=== PATIENT | male | born 1950 | race Caucasian/White ===

== ENCOUNTER 2018-09-29 11:03 | Day surgery (SDC) | payer OTHER ==
[~2018-09-29] VITALS: Ht 180.3 cm; Wt 97.2 kg
[~2018-09-29 11:03] MED LIST: ALLEGRA ALLERG180 M1 PO; CETI5 PO; Hair, Skin & N1 EACH PO; NAPR220 PO; Percocet 5-3251 EACH PO; Prilosec Otc20 MG PO; SUMA25 PO; Triamcinolone A15 G3 TOP; XARELTO10 MG PO
--- NOTE | 2018-09-29 11:58 | NUR ---
Ambulatory in Day Surgery History, Chart, Medications and Allergies reviewed before start of procedure.Patient confirms NPO status and agrees with scheduled surgery. Lungs clear T/O to Auscultation. Patient reports completing Chlorhexadine shower X2 prior to admission to hospital.Surgical site prepped with 2% Chlorhexidine cloth wipe.
--- NOTE | 2018-09-29 13:01 | NUR ---
09/29/18 1301 Monika Garza PT VOIDED PRIOR TO COMING THE OR
--- NOTE | 2018-09-29 16:20 | NUR ---
PT MEDICATED WITH 1GM TYLENOL PO AND TORADOL IV PER EMAR. VSS. PT TALKING ON PHONE.
--- NOTE | 2018-09-29 18:15 | NUR ---
PT DENIES PAIN. DENIES NAUSEA. ATE SOME DINNER. VSS. PT HAS FEELING IN FEET AND LEGS. ABLE TO MOVE BILATERAL LEGS AND FEET/TOES. STATES STILL SOME NUMBNESS BUT MUCH LESS. PT WATCHING TV.
--- NOTE | 2018-09-29 19:20 | NUR ---
RECVD REPORT FROM PREVIOUS SHIFT RN VITO. PT SITTING UP IN BED, STATES HE WOULD LIKE TO WALK INTO BATHROOM. WITH GAIT BELT AND FWW, PT AMBULATED TO BATHROOM TO URINATE, AMBULATED INTO HALLWAY, TOLERATED WELL.
--- NOTE | 2018-09-30 05:16 | NUR ---
shift summary: vss, no acute changes. pt tolerated PO intake with no n/v. pt voided >500 ml yellow urine. pt ambulated in hallway and up in room. pt reports pain controlled per mar to 2-3/ on assessment. pt remained a/o x 4, pleasant/cooperative. pt states he is quite pleased with the outcome of surgical intervention to this point, that it "exceeds his expectations". pt wore CPAP and continuous bioxx this shift to sleep, but reports he is unable to sleep more than small periods of time. operative limb with good cap refill, warm/pink toes. aquacel and cesar wrap remained c/d/i, no shadowing. pt wore cryoptherapy and SCDs while in bed and sitting in recliner.
[2018-09-30 06:24] LABS: Anion Gap 8 mmol/L (6-16); Blood Urea Nitrogen 19 mg/dL (8-24); Bun/Creatinine Ratio 22.9 (12.0-20.0); CO2, Blood 24 mmol/L (21-32); Calcium, Blood 8.6 mg/dL (8.5-10.1); Chloride, Blood 104 mmol/L (98-108); Creatinine, Blood 0.83 mg/dL (0.60-1.20); Glomerular Filtration Rate >60 (60-); Glucose, Blood 144 mg/dL (70-99); Potassium, Blood 4.3 mmol/L (3.5-5.5); Sodium, Blood 136 mmol/L (136-145)
[2018-09-30 06:25] LABS: BASOPHILS ABSOLUTE AUTO 0.03 K/mm3 (0.00-0.23); BASOPHILS PERCENT AUTO 0 % (0-2); EOSINOPHILS PERCENT AUTO 0 % (0-6); Hematocrit 41.1 % (37.0-53.0); Hemoglobin 13.7 g/dL (13.5-17.5); IMMATURE GRAN ABSOLUTE AUTO 0.14 K/mm3 (0.00-0.10); IMMATURE GRAN PERCENT AUTO 1 % (0-1); LYMPHOCYTES ABSOLUTE AUTO 1.71 K/mm3 (0.84-5.20); LYMPHOCYTES PERCENT AUTO 7 % (21-46); MONOCYTES ABSOLUTE AUTO 1.59 K/mm3 (0.16-1.47); MONOCYTES PERCENT AUTO 7 % (4-13); Mean Corpuscular HGB 30.4 pg (26.0-34.0); Mean Corpuscular HGB Conc 33.3 g/dL (31.5-36.5); Mean Platelet Volume 11.2 fL (9.1-12.4); NEUTROPHILS ABSOLUTE AUTO 19.79 K/mm3 (1.96-9.15); NEUTROPHILS PERCENT AUTO 85 % (41-73); Platelet Count 195 K/mm3 (150-400); RDW Coefficient Variation 12.6 % (11.7-14.2); RDW Standard Deviation 42.4 fL (35.1-46.3); White Blood Cell Count 23.26 K/mm3 (4.00-11.30)
[2018-09-30 06:26] LABS: Mean Corpuscular Volume 91 fL (80-100)
[2018-09-30] MEDS ORDERED: XARELTO10 MG PO (09:37)
[2018-09-30] MEDS ORDERED: Percocet 5-3251 EACH PO (09:39)
--- NOTE | 2018-09-30 11:40 | NUR ---
PATIENT D/C'D HOME WITH AT THIS TIME. PATIENT HAD L KNEE SURGERY PREVIOUSLY SO IS FAMILIAR WITH TX PLAN. STATES UNDERSTANDING OF MEDS, WOUND CARE, F/U APPT, OP PT, ACTIVITY, ETC. NO ACUTE CHANGES OR C/O.
== END 2018-09-30 11:40 | disposition home or self-care (01) ==
LOC: ORSCMMR 11:03 → ORD 14:30 → SURS 15:13 → ORSCMMR 09-30 11:40
PROVIDERS: Orthopaedic Surgery
PROC: 0SRC0JA Replacement of Right Knee Joint with Synthetic Substitute, Uncemented, Open Approach (ICD-10-PCS; principal; 2018-09-29 12:30)
DX: M17.11 Unilateral primary osteoarthritis, right knee (principal); Z01.818 Encounter for other preprocedural examination; G47.33 Obstructive sleep apnea (adult) (pediatric); K21.9 Gastro-esophageal reflux disease without esophagitis; Z79.899 Other long term (current) drug therapy; Z79.82 Long term (current) use of aspirin
CPT/HCPCS: 36415; 73560-RT; 80048; 85025; 86850; 86900; 86901; 88300; 94762; 97116; 97161; 97530; C1776; J0171; J0690; J0735; J1100; J1885; J2250; J2370; J2405; J2704; J2795; J3010; J7120

== ENCOUNTER 2019-06-10 17:24 | Emergency (ER) | payer OTHER ==
[~2019-06-10] VITALS: Ht 180.3 cm; Wt 95.2 kg
[2019-06-10] MEDS ORDERED: TUMS500 MG PO (18:09)
[2019-06-10 18:12] LABS: BASOPHILS ABSOLUTE AUTO 0.05 K/mm3 (0.00-0.23); BASOPHILS PERCENT AUTO 0 % (0-2); EOSINOPHILS ABSOLUTE AUTO 0.21 K/mm3 (0.00-0.68); EOSINOPHILS PERCENT AUTO 2 % (0-6); Hematocrit 50.5 % (37.0-53.0); Hemoglobin 16.4 g/dL (13.5-17.5); IMMATURE GRAN ABSOLUTE AUTO 0.05 K/mm3 (0.00-0.10); IMMATURE GRAN PERCENT AUTO 0 % (0-1); LYMPHOCYTES ABSOLUTE AUTO 1.94 K/mm3 (0.84-5.20); LYMPHOCYTES PERCENT AUTO 16 % (21-46); MONOCYTES ABSOLUTE AUTO 1.06 K/mm3 (0.16-1.47); MONOCYTES PERCENT AUTO 9 % (4-13); Mean Corpuscular HGB 30.5 pg (26.0-34.0); Mean Corpuscular HGB Conc 32.5 g/dL (31.5-36.5); Mean Corpuscular Volume 94 fL (80-100); Mean Platelet Volume 11.2 fL (9.1-12.4); NEUTROPHILS ABSOLUTE AUTO 8.65 K/mm3 (1.96-9.15); NEUTROPHILS PERCENT AUTO 72 % (41-73); Platelet Count 236 K/mm3 (150-400); RDW Coefficient Variation 12.4 % (11.7-14.2); RDW Standard Deviation 42.8 fL (35.1-46.3); Red Blood Cell Count 5.37 M/mm3 (4.30-5.90); White Blood Cell Count 11.96 K/mm3 (4.00-11.30)
[2019-06-10 18:27] LABS: Alanine Aminotransfer (ALT/SGP 41 U/L (12-78); Albumin, Blood 4.1 g/dL (3.4-5.0); Albumin/Globulin Ratio 0.9 (0.8-1.8); Alk Phos 72 U/L (50-136); Anion Gap 5 mmol/L (6-16); Aspartate Aminotrans (AST/SGOT 44 U/L (12-37); Bilirubin, Total 0.5 mg/dL (0.1-1.0); Blood Urea Nitrogen 15 mg/dL (8-24); Bun/Creatinine Ratio 15.6 (12.0-20.0); CO2, Blood 27 mmol/L (21-32); Calcium, Blood 8.9 mg/dL (8.5-10.1); Chloride, Blood 106 mmol/L (98-108); Creatinine, Blood 0.96 mg/dL (0.60-1.20); Globulin, Blood 4.4 g/dL (2.2-4.0); Glomerular Filtration Rate >60 (60-); Glucose, Blood 100 mg/dL (70-99); Potassium, Blood 3.7 mmol/L (3.5-5.5); Sodium, Blood 138 mmol/L (136-145); Total Protein, Blood 8.5 g/dL (6.4-8.2)
[2019-06-10 19:15] LABS: Source, Urine Clean Catch
[2019-06-10 19:19] LABS: Appearance, Urine Clear (Clear); Bilirubin, Urine Neg (Neg); Blood, Urine 1+ (Neg); Color, Urine Yellow (P-Yellow); Glucose Qualitative, Urine Neg (Neg); Ketones, Urine Neg (Neg); Leukocyte Esterase, Urine Neg (Neg); Nitrite, Urine Neg (Neg); Protein, Urine Neg (Neg); Specific Gravity, Urine 1.015 (1.003-1.022); Urobilinogen, Urine NORM (Normal)
[2019-06-10 19:39] LABS: Bacteria Not Seen /hpf; Red Blood Cells, Urine Rare /hpf (0-2); Squamous Epithelial Cells Not Seen /hpf (Few); White Blood Cells, Urine Not Seen /hpf (0-5)
== END 2019-06-10 20:56 | disposition home or self-care (01) ==
LOC: ER 17:24
PROVIDERS: Physician Assistant
DX: K52.9 Noninfective gastroenteritis and colitis, unspecified (principal); Z91.012 Allergy to eggs; Z91.018 Allergy to other foods; Z79.899 Other long term (current) drug therapy
CPT/HCPCS: 36415; 80053; 81001; 83690; 85025; 96360; 96361; 99283-25; J7120

== ENCOUNTER 2025-02-26 14:03 | Emergency (ER) | payer OTHER ==
[~2025-02-26] VITALS: Ht 182.9 cm; Wt 95.2 kg
[~2025-02-26 14:03] MED LIST changes: +TUMS500 MG PO
[2025-02-26 19:27] VITALS: BP 176/99
== END 2025-02-26 19:27 | disposition home or self-care (01) ==
LOC: ER 14:03
DX: R42 Dizziness and giddiness (principal); Z91.012 Allergy to eggs; Z91.018 Allergy to other foods; Z79.899 Other long term (current) drug therapy; Z79.01 Long term (current) use of anticoagulants
CPT/HCPCS: 70450; 71046; 93005; 93010; 99284-25